=== PATIENT | female | born 1995 | race Caucasian/White ===

== ENCOUNTER 2017-02-01 15:58 | Emergency (ER) | payer OTHER ==
[2017-02-01 16:40] VITALS: BP 114/61
--- NOTE | 2017-02-01 17:38 | UC ---
Skin Complaint HPI - HPI Summary HPI Summary: TWO DAYS OF ITCHY RED RASH ON ARMS AND LEGS. MOVED TWO WEEKS AGO. IN NEW ENVIRONMENT, BUT UNSURE TO WHAT MIGHT BE CAUSING RASH. NO BUGBITES. N MRSA HX. NO HISTORY OF TICK BITES. NO NEW KNOWN DETERGENTS. NO FEVER. NO OTHER SYMPTOMS. - History of Current Complaint Chief Complaint: UCSkin Time Seen by Provider: 02/01/17 17:11 Stated Complaint: SKIN COMPLAINT 2 DAYS Hx Obtained From: Patient Hx Last Menstrual Period: Nexplanon Onset/Duration: Gradual Onset, Lasting Days, Still Present Skin Exposure Onset/Duration: Days Ago Onset Severity: Mild Current Severity: Mild Pain Intensity: 4 Pain Scale Used: 0-10 Numeric Location: Generalized - BILATERAL ARMS AND LEGS Character: Pruritus, Hives, Redness Aggravating: Nothing Alleviating: OTC Meds Associated Signs & Symptoms: Positive: Rash. Negative: Fever, Chills, Chest Pain, Hoarseness, Throat Tightening, Syncope, Drainage, Tenderness, Red Streaks Related History: Possible Reaction to: Insect, Possible Reaction to: Environmental Exposure - Allergy/Home Medications Allergies/Adverse Reactions: Allergies Allergy/AdvReac Type Severity Reaction Status Date / Time No Known Allergies Allergy Verified 02/01/17 16:35 Review of Systems Constitutional: Negative Skin: Rash Eyes: Negative ENT: Negative Respiratory: Negative Cardiovascular: Negative Gastrointestinal: Negative Genitourinary: Negative Motor: Negative Neurovascular: Negative Musculoskeletal: Negative Neurological: Negative Psychological: Negative Is Patient Immunocompromised?: No All Other Systems Reviewed And Are Negative: Yes PMH/Surg Hx/FS Hx/Imm Hx Previously Healthy: Yes - Surgical History Surgical History: Yes Surgery Procedure, Year, and Place: dental surgery - Family History Known Family History: Positive: Hypertension, Diabetes Negative: Cardiac Disease - Social History Occupation: Employed Full-time Lives: With Family Alcohol Use: None Substance Use Type: None Smoking Status (MU): Never Smoked Tobacco - Immunization History Most Recent Influenza Vaccination: NONE 2017 Vaccination Up to Date: Yes Physical Exam Triage Information Reviewed: Yes Appearance: Well-Appearing, No Pain Distress, Well-Nourished Vital Signs: Initial Vital Signs Temp 98.4 F 02/01/17 16:36 Pulse 62 02/01/17 16:36 Resp 18 02/01/17 16:36 BP 114/61 02/01/17 16:36 Pulse Ox 100 02/01/17 16:36 Vital Signs Reviewed: Yes Eye Exam: Normal ENT Exam: Normal ENT: Positive: Normal ENT inspection, TMs normal Dental Exam: Normal Neck exam: Normal Neck: Positive: Supple, Nontender, No Lymphadenopathy Respiratory Exam: Normal Respiratory: Positive: Chest non-tender, Lungs clear, Normal breath sounds, No respiratory distress, No accessory muscle use Cardiovascular Exam: Normal Cardiovascular: Positive: RRR, No Murmur, Pulses Normal, Brisk Capillary Refill Abdominal Exam: Normal Abdomen Description: Positive: Nontender, No Organomegaly Musculoskeletal Exam: Normal Musculoskeletal: Positive: Strength Intact, ROM Intact Neurological Exam: Normal Psychological Exam: Normal Skin: Positive: rashes Course/Dx - Differential Diagnoses - Skin Complaint Differential Diagnoses: Contact Dermatitis, Drug Rash, Eczema, Impetigo, MRSA, Puente-Vick Syndrome, Tick Born Illness, Tinea, Other - BED BUGS - Diagnoses Provider Diagnoses: CONTACT DERMATITIS Discharge - Discharge Plan Condition: Stable Disposition: HOME Prescriptions: predniSONE TAB* [Deltasone TAB*] 10 mg PO DAILY #28 tab Patient Education Materials: Contact Dermatitis (ED) Referrals: Cecy Kilgore NP [Primary Care Provider] - Additional Instructions: TAKE BENADRYL 50 mg PO TWO TIMES DAILY FOR FIVE DAYS
== END 2017-02-01 17:30 | disposition home or self-care (01) ==
LOC: UCCORT 15:58
DX: L25.9 Unspecified contact dermatitis, unspecified cause (principal)
CPT/HCPCS: 99212; G0463

== ENCOUNTER 2017-06-10 16:08 | Emergency (ER) | payer OTHER | END 2017-06-10 17:59 | disposition left against medical advice (07) | LOC: UCCORT 16:08 | DX: R11.10 Vomiting, unspecified (principal); Z53.21 Procedure and treatment not carried out due to patient leaving prior to being seen by health care provider ==

== ENCOUNTER 2017-11-02 13:04 | Emergency (ER) | payer OTHER ==
[2017-11-02 13:25] VITALS: BP 128/71
--- NOTE | 2017-11-02 13:38 | UC ---
Back Pain HPI - HPI Summary HPI Summary: Pt c/o low back pain, urinary frequency , urgency, and dysuria X 4 days. - History of Current Complaint Chief Complaint: UCGU Stated Complaint: BACK PAIN Time Seen by Provider: 11/02/17 13:32 Hx Obtained From: Patient Hx Last Menstrual Period: "umm, last week" ?: No Onset/Duration: Sudden Onset, Lasting Days, Worse Since - onset Timing: Constant Severity Initially: Mild Severity Currently: Moderate Pain Intensity: 5 Back Pain: Is Diffuse - low back Character: Dull, Aching Aggravating Factor(s): Other - urination Associated Signs And Symptoms: Positive: Negative - Risk Factors TAD Risk Factors: Negative Cauda Equina Risk Factors: Negative Epidural Abscess Risk Factors: Negative - Allergies/Home Medications Allergies/Adverse Reactions: Allergies Allergy/AdvReac Type Severity Reaction Status Date / Time No Known Allergies Allergy Verified 11/02/17 13:16 Home Medications: Home Medications Ibuprofen TAB* [Motrin TAB* 800 MG] 800 mg PO ONCE 11/02/17 [History Confirmed 11/02/17] PMH/Surg Hx/FS Hx/Imm Hx Previously Healthy: Yes - Surgical History Surgical History: Yes Surgery Procedure, Year, and Place: dental surgery - Family History Known Family History: Positive: Hypertension, Diabetes Negative: Cardiac Disease - Social History Occupation: Employed Full-time Lives: With Family Alcohol Use: Daily Substance Use Type: None Smoking Status (MU): Never Smoked Tobacco Amount Used/How Often: 1/2 PPD Length of Time of Smoking/Using Tobacco: 05/2017 Have You Smoked in the Last Year: Yes Household Exposure Type: Cigarettes - Immunization History Most Recent Influenza Vaccination: NONE 2016 Vaccination Up to Date: Yes Review of Systems Constitutional: Negative Skin: Negative Eyes: Negative ENT: Negative Respiratory: Negative Cardiovascular: Negative Gastrointestinal: Abdominal Pain Genitourinary: Dysuria, Frequency, Urgency Motor: Negative Neurovascular: Negative Musculoskeletal: Myalgia Neurological: Negative Psychological: Negative Is Patient Immunocompromised?: No All Other Systems Reviewed And Are Negative: Yes Physical Exam Triage Information Reviewed: Yes Appearance: Well-Appearing Vital Signs: Initial Vital Signs Temp 98.2 F 11/02/17 13:16 Pulse 82 11/02/17 13:16 Resp 16 11/02/17 13:16 BP 128/71 11/02/17 13:16 Pulse Ox 100 11/02/17 13:16 Vital Signs Reviewed: Yes Eye Exam: Normal ENT: Positive: Hearing grossly normal Neck exam: Normal Respiratory Exam: Normal Cardiovascular Exam: Normal Abdomen Description: Positive: CVA Tenderness (R) Musculoskeletal Exam: Normal Neurological Exam: Normal Psychological Exam: Normal Skin Exam: Normal Back Pain Course/Dx - Differential Dx/Diagnosis Differential Diagnosis/HQI/PQRI: Herniated Disc, Strain Provider Diagnoses: uti Discharge - Sign-Out/Discharge Documenting (check all that apply): Discharge/Admit/Transfer - Discharge Plan Condition: Stable Disposition: HOME Prescriptions: Cephalexin CAP* [Keflex 500 CAP*] 500 mg PO Q8H #15 cap Phenazopyridine TAB* [Pyridium 100 mg TAB*] 100 mg PO Q8H #3 tab Patient Education Materials: Urinary Tract Infection in Women (ED) Referrals: [facility] [Outside] Non Staff,Doctor [Primary Care Provider] - - Billing Disposition and Condition Condition: STABLE Disposition: Home
== END 2017-11-02 13:54 | disposition home or self-care (01) ==
LOC: UCCORT 13:04
DX: N39.0 Urinary tract infection, site not specified (principal); B96.20 Unspecified Escherichia coli [E. coli] as the cause of diseases classified elsewhere; F17.210 Nicotine dependence, cigarettes, uncomplicated
CPT/HCPCS: 81003; 87086; 99212; G0463